=== PATIENT | female | born 1995 | race Caucasian/White ===

== ENCOUNTER 2016-09-16 02:32 | Emergency (ER) | payer OTHER, SELFPAY ==
[~2016-09-16] VITALS: Ht 170.2 cm; Wt 63.0 kg
[2016-09-16 02:39] VITALS: BP 137/83
[2016-09-16] MEDS ORDERED: BENA25CA4 PO (02:46)
[2016-09-16] MEDS: predniSONE 20 MG TAB PO ONE (04:38)
== END 2016-09-16 04:44 | disposition home or self-care (01) ==
LOC: M ED 03:38
DX: S00.96XA Insect bite (nonvenomous) of unspecified part of head, initial encounter (principal); W57.XXXA Bitten or stung by nonvenomous insect and other nonvenomous arthropods, initial encounter; Y92.89 Other specified places as the place of occurrence of the external cause; Y93.89 Activity, other specified; Y99.9 Unspecified external cause status